=== PATIENT | male | born 1940 | race Caucasian/White ===

== ENCOUNTER 2023-12-06 19:26 | Inpatient (IN) | payer MEDICARE, BC ==
--- NOTE | 2023-12-06 20:14 | ED ---
General Adult HPI - General Chief complaint: Recheck/Abnormal Lab/Rx Stated complaint: sick Time Seen by Provider: 12/06/23 19:41 Source: patient, EMS Mode of arrival: EMS Limitations: no limitations, physical limitation - History of Present Illness Initial comments: Dictation was produced using Banno dictation software. please excuse any grammatical, word or spelling errors. Chief Complaint: 83-year-old male with past medical history of diabetes presents to the ER for hypoxia URI type symptoms History of Present Illness: Patient is 83-year-old male denies any significant comorbidities. EMS was called for patient having fevers and loose stools. Patient denies any specific complaints. According EMS patient was hypoxic into the low 80s upon initial evaluation. States that his granddaughter also checked his oxygen was found to be low. Apparently several individuals in the household have been sick with URI type symptoms. Patient denies any pain. States that he does not feel short of breath. Furthermore he states that he has a chronic cough that has not changed over the last couple days The ROS documented in this emergency department record has been reviewed and confirmed by me. Those systems with pertinent positive or negative responses have been documented in the HPI. All other systems are other negative and/or noncontributory. - Related Data Home Medications Medication Instructions Recorded Confirmed Aspirin EC [Ecotrin Low Dose] 81 mg PO DAILY 12/06/23 12/06/23 Calcium Carbonate/Vitamin D3 1 tab PO BID 12/06/23 12/06/23 [Calcium 600 mg-D3 20 mcg (800 unit)] Cyanocobalamin [Vitamin B-12] 500 mcg PO DAILY 12/06/23 12/06/23 Ferrous Sulfate [Feosol] 325 mg PO BID 12/06/23 12/06/23 Lansoprazole [Prevacid 24Hr] 15 mg PO DAILY 12/06/23 12/06/23 Magnesium Oxide [Magnesium] 500 mg PO BID 12/06/23 12/06/23 Midodrine [ProAmatine] 5 mg PO TID PRN 12/06/23 12/06/23 Simvastatin [Zocor] 40 mg PO HS 12/06/23 12/06/23 cilostazoL [Pletal] 100 mg PO BID 12/06/23 12/06/23 glyBURIDE [Diabeta] 5 mg PO HS 12/06/23 12/06/23 Allergies Allergy/AdvReac Type Severity Reaction Status Date / Time cerivastatin [From Baycol] Allergy Unknown Verified 12/06/23 21:09 lisinopril Allergy Unknown Verified 12/06/23 21:09 metformin Allergy Unknown Verified 12/06/23 21:09 prednisone Allergy Unknown Verified 12/06/23 21:09 Review of Systems ROS Statement: Those systems with pertinent positive or pertinent negative responses have been documented in the HPI. ROS Other: All systems not noted in ROS Statement are negative. Past Medical History Past Medical History: Diabetes Mellitus History of Any Multi-Drug Resistant Organisms: None Reported Past Psychological History: No Psychological Hx Reported Smoking Status: Former smoker Past Alcohol Use History: None Reported Past Drug Use History: None Reported General Exam - General Exam Comments Initial Comments: PHYSICAL EXAM: General Impression: Alert and oriented x3, not in acute distress HEENT: Normocephalic atraumatic, extra-ocular movements intact, pupils equal and reactive to light bilaterally, mucous membranes moist. Cardiovascular: Heart regular rate and rhythm Chest: Dyspneic, diffuse rhonchi with auscultation of lungs bilaterally Abdomen: abdomen soft, non-tender, non-distended, no organomegaly Musculoskeletal: Pulses present and equal in all extremities, no peripheral edema Motor: no focal deficits noted Neurological: CN II-XII grossly intact, no focal motor or sensory deficits noted Skin: Intact with no visualized rashes Psych: Normal affect and mood Limitations: no limitations, physical limitation Course Vital Signs 12/06/23 12/06/23 12/06/23 19:30 19:53 21:30 Temperature 98.9 F Pulse Rate 147 H 147 H 68 Respiratory 24 20 Rate Blood Pressure 110/71 120/86 O2 Sat by Pulse 95 94 L Oximetry EKG Findings - EKG Comments: EKG Findings:: My EKG interpretation: Ventricular rate 148, tachycardia versus atrial flutter. No no QTC prolongation, no ST or T-wave changes noted. No EKG for comparison. Overall this EKG is nonspecific Medical Decision Making - Medical Decision Making Was pt. sent in by a medical professional or institution (, PA, EXPORT DOCUMENTS CLERK, urgent care, hospital, or fpc...) When possible be specific @ -No Did you speak to anyone other than the patient for history (EMS, parent, family, police, friend...)? What history was obtained from this source @ -No Did you review nursing and triage notes (agree or disagree)? Why? @ -I reviewed and agree with nursing and triage notes Were old charts reviewed (outside hosp., previous admission, EMS record, old EKG, old radiological studies, urgent care reports/EKG's, fpc records)? Report findings @ -No old charts were reviewed Differential Diagnosis (chest pain, altered mental status, abdominal pain women, abdominal pain men, vaginal bleeding, musculoskeletal, weakness, fever, dyspnea, syncope, headache, dizziness, GI bleed, back pain, seizure, CVA, palpatations, mental health)? @ -Differential Dyspnea: Coronary syndrome, arrhythmia, tamponade, asthma, COPD, pulmonary embolism, pneumonia, pneumothorax, pulmonary effusion, anaphylaxis, diabetic ketoacidosis, flailed chest, pulmonary contusion, diaphragmatic rupture, anemia, neuromuscular, this is not meant to be an all-inclusive list. EKG interpreted by me (3pts min.). @ -See above X-rays interpreted by me (1pt min.). @ -Chest x-ray shows no acute processes CT interpreted by me (1pt min.). @ -None done U/S interpreted by me (1pt. min.). @ -None done What testing was considered but not performed or refused? (CT, X-rays, U/S, labs)? Why? @ -None What meds were considered but not given or refused? Why? @ -None Did you discuss the management of the patient with other professionals (professionals i.e. , PA, EXPORT DOCUMENTS CLERK, lab, RT, psych nurse, social contact worker, librarian specialist, teacher, senior escrow officer, bilingual patient support caseworker)? Give summary @ -Case discussed with hospitalist for admission Was smoking cessation discussed for >3mins.? @ -No Was critical care preformed (if so, how long)? @ -No Were there social determinants of health that impacted care today? How? (Homelessness, low income, unemployed, alcoholism, drug addiction, transportation, low edu. Level, literacy, decrease access to med. care, shelter, rehab)? @ -No Was there de-escalation of care discussed even if they declined (Discuss DNR or withdrawal of care, Hospice)? DNR status @ -No What co-morbidities impacted this encounter? (DM, HTN, Smoking, COPD, CAD, Cancer, CVA, ARF, Chemo, Hep., AIDS, mental health diagnosis, sleep apnea, morbid obesity)? @ -None Was patient admitted / discharged? Hospital course, mention meds given and route, prescriptions, significant lab abnormalities, going to OR and other [facility] info. @ -83-year-old male presents to the emergency department for alleged hypoxia. Vital signs upon arrival shows 95% oxygen on 2 L nasal cannula. He was significantly tachycardic into the 150s. His EKG showed significant tachycardia however raises suspicion of pathologic tacky dysrhythmia atrial flutter versus supraventricular tachycardia. Laboratory evaluation obtained. CBC unremarka ble. Metabolic panel within acceptable limits. Cardiac enzymes shows troponin of 0.047, brain atretic peptide of 2660. Patient did not report any acute complaints. He was monitored in the emergency department and converted. Repeat EKG showed atrial fibrillation. Patient denies a history of A-fib anticoagulation use or ever having previously been evaluated by society reporter. Patient be admitted for new onset A-fib. Undiagnosed new problem with uncertain prognosis? @ -No Drug Therapy requiring intensive monitoring for toxicity (Heparin, Nitro, Insulin, Cardizem)? @ -No Were any procedures done? @ -No Diagnosis/symptom? Acute, or Chronic, or Acute on Chronic? Uncomplicated (without systemic symptoms) or Complicated (systemic symptoms)? @ -New onset A-fib Side effects of treatment? @ -No Exacerbation, Progression, or Severe Exacerbation? @ -No Poses a threat to life or bodily function? How? (Chest pain, USA, SD, pneumonia, PE, COPD, DKA, ARF, appy, cholecystitis, CVA, Diverticulitis, Homicidal, Suicidal, threat to staff... and all critical care pts) @ -yes - Lab Data Result diagrams: 12/06/23 20:25 12/06/23 20:25 Lab Results 12/06/23 12/06/23 12/06/23 Range/Units 20:25 20:25 20:25 WBC 4.6 (3.8-10.6) k/uL RBC 4.45 (4.30-5.90) m/uL Hgb 13.3 (13.0-17.5) gm/dL Hct 39.8 (39.0-53.0) % MCV 89.4 (80.0-100.0) fL MCH 29.8 (25.0-35.0) pg MCHC 33.3 (31.0-37.0) g/dL RDW 14.1 (11.5-15.5) % Plt Count 250 (150-450) k/uL MPV 7.7 Neutrophils % 65 % Lymphocytes % 21 % Monocytes % 9 % Eosinophils % 1 % Basophils % 2 % Neutrophils # 3.0 (1.3-7.7) k/uL Lymphocytes # 0.9 L (1.0-4.8) k/uL Monocytes # 0.4 (0-1.0) k/uL Eosinophils # 0.0 (0-0.7) k/uL Basophils # 0.1 (0-0.2) k/uL PT 11.1 (10.0-12.5) sec INR 1.0 (<1.2) APTT 29.9 (22.0-30.0) sec Sodium 133 L (137-145) mmol/L Potassium 5.2 H (3.5-5.1) mmol/L Chloride 98 (98-107) mmol/L Carbon Dioxide 24 (22-30) mmol/L Anion Gap 11 mmol/L BUN 44 H (9-20) mg/dL Creatinine 1.70 H (0.66-1.25) mg/dL Est GFR (CKD-EPI)AfAm 42 (>60 ml/min/1.73 sqM) Est GFR (CKD-EPI)NonAf 36 (>60 ml/min/1.73 sqM) Glucose 105 H (74-99) mg/dL Plasma Lactic Acid Maksim (0.7-2.0) mmol/L Calcium 8.1 L (8.4-10.2) mg/dL Magnesium 2.1 (1.6-2.3) mg/dL Total Bilirubin 0.7 (0.2-1.3) mg/dL AST 68 H (17-59) U/L ALT 19 (4-49) U/L Alkaline Phosphatase 66 (38-126) U/L Troponin I (0.000-0.034) ng/mL NT-Pro-B Natriuret Pep 2660 pg/mL Total Protein 6.7 (6.3-8.2) g/dL Albumin 3.7 (3.5-5.0) g/dL 12/06/23 12/06/23 Range/Units 20:25 20:25 WBC (3.8-10.6) k/uL RBC (4.30-5.90) m/uL Hgb (13.0-17.5) gm/dL Hct (39.0-53.0) % MCV (80.0-100.0) fL MCH (25.0-35.0) pg MCHC (31.0-37.0) g/dL RDW (11.5-15.5) % Plt Count (150-450) k/uL MPV Neutrophils % % Lymphocytes % % Monocytes % % Eosinophils % % Basophils % % Neutrophils # (1.3-7.7) k/uL Lymphocytes # (1.0-4.8) k/uL Monocytes # (0-1.0) k/uL Eosinophils # (0-0.7) k/uL Basophils # (0-0.2) k/uL PT (10.0-12.5) sec INR (<1.2) APTT (22.0-30.0) sec Sodium (137-145) mmol/L Potassium (3.5-5.1) mmol/L Chloride (98-107) mmol/L Carbon Dioxide (22-30) mmol/L Anion Gap mmol/L BUN (9-20) mg/dL Creatinine (0.66-1.25) mg/dL Est GFR (CKD-EPI)AfAm (>60 ml/min/1.73 sqM) Est GFR (CKD-EPI)NonAf (>60 ml/min/1.73 sqM) Glucose (74-99) mg/dL Plasma Lactic Acid Maksim 1.6 (0.7-2.0) mmol/L Calcium (8.4-10.2) mg/dL Magnesium (1.6-2.3) mg/dL Total Bilirubin (0.2-1.3) mg/dL AST (17-59) U/L ALT (4-49) U/L Alkaline Phosphatase (38-126) U/L Troponin I 0.047 H* (0.000-0.034) ng/mL NT-Pro-B Natriuret Pep pg/mL Total Protein (6.3-8.2) g/dL Albumin (3.5-5.0) g/dL Disposition Clinical Impression: New onset a-fib Disposition: ADMITTED IP TO THIS HOSP Condition: Fair Referrals: None,Stated [Primary Care Provider] - 1-2 days Decision Time: 23:47
[2023-12-06] MEDS: SODIUM CHLORIDE 0.9% 1,000 ML IV STA (20:45)
[2023-12-06 20:48] LABS: Basophils # (A) 0.1 k/uL (0-0.2); Basophils % (A) 2 %; Eosinophils % (A) 1 %; HCT 39.8 % (39.0-53.0); HGB 13.3 gm/dL (13.0-17.5); Lymphocytes # (A) 0.9 k/uL (1.0-4.8); Lymphocytes % (A) 21 %; MCH 29.8 pg (25.0-35.0); MCHC 33.3 g/dL (31.0-37.0); MCV 89.4 fL (80.0-100.0); Mean Platelet Volume 7.7; Monocytes # (A) 0.4 k/uL (0-1.0); Monocytes % (A) 9 %; Neutrophils % (A) 65 %; Platelet Count 250 k/uL (150-450); RBC 4.45 m/uL (4.30-5.90); RDW 14.1 % (11.5-15.5); WBC 4.6 k/uL (3.8-10.6)
[2023-12-06 21:02] LABS: Partial Thromboplastin Time 29.9 sec (22.0-30.0); Prothrombin Time 11.1 sec (10.0-12.5)
[2023-12-06 21:10] LABS: ALT 19 U/L (4-49); AST 68 U/L (17-59); African American GFR (CKD) 42 (>60 ml/min/1.73 sqM); Albumin 3.7 g/dL (3.5-5.0); Alkaline Phosphatase 66 U/L (38-126); Anion Gap 11 mmol/L; Blood Urea Nitrogen 44 mg/dL (9-20); Calcium 8.1 mg/dL (8.4-10.2); Carbon Dioxide 24 mmol/L (22-30); Chloride 98 mmol/L (98-107); Glucose 105 mg/dL (74-99); Magnesium 2.1 mg/dL (1.6-2.3); Non-African American GFR(CKD) 36 (>60 ml/min/1.73 sqM); Sodium 133 mmol/L (137-145); Total Bilirubin 0.7 mg/dL (0.2-1.3); Total Protein 6.7 g/dL (6.3-8.2)
[2023-12-06 21:17] LABS: NT-Pro-B-Type Natriuretic Pept 2660 pg/mL
[2023-12-06 21:34] LABS: Potassium 5.2 mmol/L (3.5-5.1)
--- NOTE | 2023-12-06 21:48 | XR ---
EXAMINATION TYPE: XR chest 2V DATE OF EXAM: 12/06/2023 8:56 PM CLINICAL INDICATION:Male, 83 years old with history of hypoxia; PHH COMPARISON: None TECHNIQUE: XR chest 2V. Frontal and lateral views of the chest.. FINDINGS: Lines/Tubes/Devices: No indwelling lines are seen. Monitor leads over the chest. Heart/mediastinum: Heart appears mildly enlarged. Mildly tortuous aorta with atherosclerotic calcifi cation seen. Pulmonary vascularity: Mildly prominent hilar vascular shadows, likely arterial. No significant venou s congestion is suggested. Lungs/Pleura: Lungs appear hyperinflated with interstitial coarsening which may suggest a background of COPD changes. Some ill-defined patchy opacities are suggested peripherally in the left mid to uppe r lung zones, and possibly the right lower lung zone. Small radiodense foci over the right upper lung zone may reflect calcified granulomas. No sizable pleural effusion or evidence of pneumothorax. Musculoskeletal: No acute osseous abnormality demonstrated in the limits of the exam. Degenerative c hanges of the thoracic spine, otherwise not well assessed. Other findings: None. IMPRESSION: 1. Lung findings may be seen with COPD. 2. Nonspecific vague opacities in the bilateral lung jo, could reflect chronic changes/nodularit y, with acute consolidation considered less likely but not excluded. 3. Follow-up recommended. This may include CT of the chest for better evaluation.
[2023-12-06] MEDS ORDERED: HEPARIN SODIUM 1,000 UN/ML (10ML VL) IV PRN (23:00)
[2023-12-06] MEDS ORDERED: NALOXONE 0.4 MG/ML 1 ML VIAL IV PRN (23:36)
[2023-12-06] MEDS: HEPARIN SODIUM 1,000 UN/ML (10ML VL) IV ONE (23:38)
[2023-12-06] MEDS: HEPARIN SOD,PORK IN 0.45% NACL 25,000 UNIT in 0.45% NACL 1 250ML.BAG IV SCH (23:44)
[2023-12-06] MEDS: SODIUM CHLORIDE 0.9% 1,000 ML IV SCH (23:49)
--- NOTE | 2023-12-07 04:07 | P.HPIM ---
History of Present Illness H&P Date: 12/06/23 Patient is a 83-year-old male with a PMH of type II DM and hyperlipidemia who presents to the emergency room with complaints of shortness of breath and palpitations. Patient reports he had checked his pulse oximeter which revealed an SpO2 of 74% and that he was told that his heart rate was irregular. EMS documentation reveals however that they were called to the scene for complaints of diarrhea and fever. Patient denies experiencing abdominal pain or diarrhea. Also denies nausea, vomiting, fever, chills, chest pain. Denies history of A- fib. In the emergency room, initial EKG revealed a flutter at 148 bpm as reviewed by me. Subsequent EKG revealed sinus rhythm at 76 bpm with APCs as reviewed by me. Chest x-ray revealed bilateral lung field nodularities. Laboratory evaluation was remarkable for troponin 0.047, proBNP 2660, sodium 133, potassium 5.2, BUN 44, creatinine 1.70, lactic acid 1.6. ED documentation reviewed and case discussed with ED provider. Review of systems: Pertinent positives and negatives as discussed in HPI, a complete review of systems was performed and all other systems are negative. Physical examination: Vital signs reviewed General: non toxic, no distress, appears at stated age, normal weight Derm: no unusual rashes/lesions, warm Head: atraumatic, normocephalic, symmetric Eyes: EOMI, no lid lag, anicteric sclera, pupils equal round reactive to light ENT: Nose and ears atraumatic Neck: No cervical lymphadenopathy, trachea midline, supple Mouth: no lip lesion, mucus membranes moist Cardiovascular: S1S2 reg, no murmur, positive dorsalis pedis pulse bilateral, no edema Lungs: CTA bilateral, no rhonchi, no rales, no accessory muscle use Abdominal: soft, nontender to palpation, no guarding Ext: muscle strength 5 out of 5 in all 4 extremities grossly, no gross muscle atrophy, no contractures, Neuro: CN II-XI grossly intact, no gross focal neuro deficits Psych: Alert, oriented, appropriate affect Assessment: A-fib with RVR, newly diagnosed Elevated troponin, suspect type II ND in setting of A-fib with RVR Acute hypoxic respiratory failure, suspect newly diagnosed CHF Acute kidney injury Chronic conditions: Type II DM, hyperlipidemia Imaging: In the emergency room, initial EKG revealed a flutter at 148 bpm as reviewed by me. Subsequent EKG revealed sinus rhythm at 76 bpm with APCs as reviewed by me. Chest x-ray revealed bilateral lung field nodularities. Data Review: Laboratory evaluation was remarkable for troponin 0.047, proBNP 2660, sodium 133, potassium 5.2, BUN 44, creatinine 1.70, lactic acid 1.6. Plan: Continue with heparin infusion Patient converted to sinus rhythm spontaneously Cardiac monitoring Trend troponin Cardiology consulted Obtain echocardiogram Obtain CT chest Monitor BMP Check procalcitonin levels DVT prophylaxis: Heparin infusion The patient is admitted with an anticipated greater than than 2 midnight stay for evaluation of A-fib CODE STATUS: Full Code Discussed with: Patient Anticipated discharge place: Home Past Medical History Past Medical History: Diabetes Mellitus History of Any Multi-Drug Resistant Organisms: None Reported Past Psychological History: No Psychological Hx Reported Smoking Status: Former smoker Past Alcohol Use History: None Reported Past Drug Use History: None Reported Medications and Allergies Home Medications Medication Instructions Recorded Confirmed Type Aspirin EC [Ecotrin Low Dose] 81 mg PO DAILY 12/06/23 12/06/23 History Calcium Carbonate/Vitamin D3 1 tab PO BID 12/06/23 12/06/23 History [Calcium 600 mg-D3 20 mcg (800 unit)] Cyanocobalamin [Vitamin B-12] 500 mcg PO DAILY 12/06/23 12/06/23 History Ferrous Sulfate [Feosol] 325 mg PO BID 12/06/23 12/06/23 History Lansoprazole [Prevacid 24Hr] 15 mg PO DAILY 12/06/23 12/06/23 History Magnesium Oxide [Magnesium] 500 mg PO BID 12/06/23 12/06/23 History Midodrine [ProAmatine] 5 mg PO TID PRN 12/06/23 12/06/23 History Simvastatin [Zocor] 40 mg PO HS 12/06/23 12/06/23 History cilostazoL [Pletal] 100 mg PO BID 12/06/23 12/06/23 History glyBURIDE [Diabeta] 5 mg PO HS 12/06/23 12/06/23 History Allergies Allergy/AdvReac Type Severity Reaction Status Date / Time cerivastatin [From Baycol] Allergy Unknown Verified 12/06/23 21:09 lisinopril Allergy Unknown Verified 12/06/23 21:09 metformin Allergy Unknown Verified 12/06/23 21:09 prednisone Allergy Unknown Verified 12/06/23 21:09 Physical Exam Vitals: Vital Signs Temp Pulse Resp BP Pulse Ox 12/06/23 21:30 68 20 120/86 94 L 12/06/23 19:53 147 H 12/06/23 19:30 98.9 F 147 H 24 110/71 95 Intake and Output 12/06/23 12/06/23 12/07/23 14:59 22:59 06:59 Other: Weight 90.718 kg Results CBC & Chem 7: 12/06/23 20:25 12/06/23 20:25 Labs: Abnormal Lab Results - Last 24 Hours (Table) 12/06/23 12/06/23 12/06/23 Range/Units 20:25 20:25 20:25 Lymphocytes # 0.9 L (1.0-4.8) k/uL Sodium 133 L (137-145) mmol/L Potassium 5.2 H (3.5-5.1) mmol/L BUN 44 H (9-20) mg/dL Creatinine 1.70 H (0.66-1.25) mg/dL Glucose 105 H (74-99) mg/dL Calcium 8.1 L (8.4-10.2) mg/dL AST 68 H (17-59) U/L Troponin I 0.047 H* (0.000-0.034) ng/mL
[2023-12-07 04:57] LABS: African American GFR (CKD) 42 (>60 ml/min/1.73 sqM); Anion Gap 8 mmol/L; Blood Urea Nitrogen 44 mg/dL (9-20); Calcium 7.9 mg/dL (8.4-10.2); Carbon Dioxide 24 mmol/L (22-30); Chloride 102 mmol/L (98-107); Glucose 84 mg/dL (74-99); Non-African American GFR(CKD) 36 (>60 ml/min/1.73 sqM); Potassium 4.2 mmol/L (3.5-5.1); Sodium 134 mmol/L (137-145)
--- NOTE | 2023-12-07 09:29 | CT ---
EXAMINATION TYPE: CT chest wo con CT DLP: 431 mGycm, Automated exposure control for dose reduction was used. DATE OF EXAM: 12/07/2023 5:09 AM COMPARISON: Chest radiograph from 12/06/2023. CLINICAL INDICATION:Male, 83 years old with history of hypoxia, vika nodularities;, hypoxia, vika nodul arities TECHNIQUE: Multiple axial images were obtained through the chest. Sagittal and coronal reformats were created for review. Contrast used: mL of (None if empty) Oral contrast used: (None if empty) FINDINGS: LUNGS/ PLEURA: Centrilobular emphysema changes are present throughout the lungs. No evidence for susp icious pulmonary nodule. There is streaky atelectasis in the lung bases most pronounced in the right lung base. There is calcifications of the pleura. AIRWAY: Patent and unremarkable. HEART: Heart is enlarged for size. There is severe coronary cusp patient's. Aortic valve leaflet betito ccation. MEDIASTINUM: No gross evidence of adenopathy. VASCULATURE: No aortic aneurysm. Severe atherosclerosis of the arterial vasculature. MUSCULOSKELETAL: Multiple remote appearing rib fractures are identified bilaterally. Vertebroplasty c hanges at T12. Multilevel degeneration changes throughout the spine are moderate. SOFT TISSUES/LYMPH NODES: Unremarkable. LOWER NECK: No significant findings. UPPER ABDOMEN: No significant findings. IMPRESSION: 1. No suspicious pulmonary nodules. 2. Pleural calcifications bilaterally 3. Remote appearing rib fractures. 4. Severe coronary artery atherosclerosis. 5. Mild cardiomegaly. 6. Mild to moderate Emphysema changes
--- NOTE | 2023-12-07 10:24 | P.PN ---
Subjective Progress Note Date: 12/07/23 No new complaints today. Discussed with nursing, patient is scheduled for echo today. Heart rates are better controlled, now in sinus rhythm with PACs on telemetry Gen: In NAD, non-toxic HEENT: normocephalic, atraumatic, hearing acuity is intant, mucous membranes moist CVS: perfusing all extremities well, no pitting edema, Respiratory: symmetric chest expansion, no accessory muscle use, GI: soft, NTTP, ND, : no suprapubic tenderness, no CVA tenderness MSK/Derm: no rashes, cyanosis Neuro: CN II-XII intact, no motor weakness, Psych: cooperative, euthymic mood, judgment and insight is intact Hospital course: Patient is a 83-year-old male with a PMH of type II DM and hyperlipidemia who presents to the emergency room with complaints of shortness of breath and palpitations. In the emergency room, initial EKG revealed a flutter at 148 bpm as reviewed by me. Subsequent EKG revealed sinus rhythm at 76 bpm with APCs as reviewed by me. Chest x-ray revealed bilateral lung field nodularities. Laboratory evaluation was remarkable for troponin 0.047, proBNP 2660, sodium 133, potassium 5.2, BUN 44, creatinine 1.70, lactic acid 1.6. Assessment: A-fib with RVR, newly diagnosed Influenza A Elevated troponin, suspect type II [place] in setting of A-fib with RVR Acute hypoxic respiratory failure, suspect newly diagnosed CHF Acute kidney injury Chronic conditions: Type II DM, hyperlipidemia Plan: Continue with heparin infusion Patient converted to sinus rhythm spontaneously Cardiac monitoring Trend troponin Cardiology consulted, evaluation pending Obtain echocardiogram, pending Obtain CT chest, no nodules, remote rib fractures, emphysema is present, heart is enlarged Monitor BMP Check procalcitonin levels equals 0.4 Start Tamiflu DVT prophylaxis: Heparin infusion The patient is admitted with an anticipated greater than than 2 midnight stay for evaluation of A-fib CODE STATUS: Full Code Discussed with: Patient Anticipated discharge place: Home Objective - Vital Signs Vital signs: Vital Signs Temp 98.9 F 12/06/23 19:30 Pulse 89 12/07/23 10:08 Resp 16 12/07/23 10:08 BP 124/60 12/07/23 10:08 Pulse Ox 88 L 12/07/23 07:25 FiO2 Intake & Output 12/06/23 12/07/2312/06/24 18:59 06:59 18:59 Intake Total 91.333 Balance 91.333 Weight 90.718 kg Intake: Intake, IV Titration 91.333 Amount Heparin Sod,Pork in 0.45% 91.333 NaCl 25,000 unit In 0.45 % NaCl 1 250ml.bag @ 11. 0232 UNITS/KG/HR 10 mls/ hr IV .Q24H [facility] Rx#: [id number] - Labs CBC & Chem 7: 12/06/23 20:25 12/07/23 04:11 Labs: Abnormal Lab Results - Last 24 Hours (Table) 12/06/23 12/06/23 12/06/23 Range/Units 20:25 20:25 20:25 Lymphocytes # 0.9 L (1.0-4.8) k/uL APTT (22.0-30.0) sec Sodium 133 L (137-145) mmol/L Potassium 5.2 H (3.5-5.1) mmol/L BUN 44 H (9-20) mg/dL Creatinine 1.70 H (0.66-1.25) mg/dL Glucose 105 H (74-99) mg/dL Calcium 8.1 L (8.4-10.2) mg/dL AST 68 H (17-59) U/L Troponin I 0.047 H* (0.000-0.034) ng/mL Procalcitonin (0.02-0.09) ng/mL Influenza Type A (PCR) (Not Detectd) 12/07/23 12/07/23 12/07/23 Range/Units 04:11 04:11 04:11 Lymphocytes # (1.0-4.8) k/uL APTT (22.0-30.0) sec Sodium 134 L (137-145) mmol/L Potassium (3.5-5.1) mmol/L BUN 44 H (9-20) mg/dL Creatinine 1.71 H (0.66-1.25) mg/dL Glucose (74-99) mg/dL Calcium 7.9 L (8.4-10.2) mg/dL AST (17-59) U/L Troponin I 0.074 H* (0.000-0.034) ng/mL Procalcitonin 0.40 H (0.02-0.09) ng/mL Influenza Type A (PCR) (Not Detectd) 12/07/23 12/07/23 12/07/23 Range/Units 06:00 07:15 09:24 Lymphocytes # (1.0-4.8) k/uL APTT 197.7 H* 63.6 H (22.0-30.0) sec Sodium (137-145) mmol/L Potassium (3.5-5.1) mmol/L BUN (9-20) mg/dL Creatinine (0.66-1.25) mg/dL Glucose (74-99) mg/dL Calcium (8.4-10.2) mg/dL AST (17-59) U/L Troponin I (0.000-0.034) ng/mL Procalcitonin (0.02-0.09) ng/mL Influenza Type A (PCR) Detected A (Not Detectd)
--- NOTE | 2023-12-07 11:11 | CA ---
Transthoracic Echo Report Name: James Toledo Age: 83 Gender: M : 1940 Exam Date: 12/07/2023 07:46 Exam Location: [facility] Ht (in): 70 Wt (lb): 200 Ordering Physician: Jen Matias MD Attending/Referring Phys: Primary Therapist Crystal Gipson RDCS Procedure CPT: Indications: afib, suspect CHF Cardiac Hx: Technical Quality: Fair Contrast 1: Total Dose (mL): Contrast 2: Total Dose (mL): MEASUREMENTS (Male / Female) Normal Values 2D ECHO LV Diastolic Diameter PLAX 3.6 cm 4.2 - 5.9 / 3.9 - 5.3 cm LV Systolic Diameter PLAX 3.1 cm IVS Diastolic Thickness 1.2 cm 0.6 - 1.0 / 0.6 - 0.9 cm LVPW Diastolic Thickness 1.2 cm 0.6 - 1.0 / 0.6 - 0.9 cm LV Relative Wall Thickness 0.7 RV Internal Dim ED PLAX 3.2 cm LA Systolic Diameter LX 4.1 cm 3.0 - 4.0 / 2.7 - 3.8 cm LV Diastolic Volume MOD 4C 72.2 cm??? LV Systolic Volume MOD 4C 39.1 cm??? LV Ejection Fraction MOD 4C 45.8 % LV Cardiac Index MOD 4C 1890.4 cm???/min???m??? LV Diastolic Length 4C 8.3 cm LV Systolic Length 4C 7.2 cm LV Diastolic Volume MOD 2C 64.0 cm??? LV Systolic Volume MOD 2C 21.1 cm??? LV Ejection Fraction MOD 2C 67.0 % LV Cardiac Index MOD 2C 2449.1 cm???/min???m??? LV Diastolic Length 2C 7.7 cm LV Systolic Length 2C 7.1 cm LA Volume 58.5 cm??? 18 - 58 / 22 - 52 cm??? LA Volume Index 27.4 cm???/m??? 16 - 28 cm???/m??? M-MODE Aortic Root Diameter MM 3.3 cm DOPPLER AV Peak Velocity 248.4 cm/s AV Peak Gradient 24.7 mmHg AV Mean Velocity 178.0 cm/s AV Mean Gradient 14.2 mmHg AV Velocity Time Integral 50.4 cm AI Peak Velocity 334.4 cm/s AI Peak Gradient 44.7 mmHg AI Pressure Half Time 665.5 ms LVOT Peak Velocity 93.2 cm/s LVOT Peak Gradient 3.5 mmHg MV Deceleration Time 184.8 ms FINDINGS Left Ventricle Left ventricular ejection fraction is estimated at 45%. Small left ventricular cavity. Mildly increased septal wall thickness. Right Ventricle Normal right ventricular size. Unable to estimate the right ventricular systolic pressure. Right Atrium Normal right atrial size. Left Atrium Mildly increased left atrial diameter. Mildly increased left atrial area. Mitral Valve Mitral valve thickened. Mitral annular calcification. No mitral regurgitation. Aortic Valve No evidence of vegetation on the aortic valve. Aortic valve sclerosis. Mild aortic stenosis with a peak gradient of 25 mmHg and a mean gradient of 14 mmHg. Mild aortic regurgitation. Tricuspid Valve Structurally normal tricuspid valve. No tricuspid regurgitation. Pulmonic Valve Pulmonic valve not well visualized. Pericardium No pericardial effusion. Aorta Normal size aortic root and proximal ascending aorta. CONCLUSIONS Mildly impaired LV function with EF around 45% Mild aortic stenosis with a mean gradient of 14 mmHg and mild aortic insufficiency Previewed by: Dr. Zackery Haro MD (Electronically Signed) Final Date: 07 December 2023 11:11
[2023-12-07] MEDS: OSELTAMIVIR 30 MG CAP PO SCH (11:47)
--- NOTE | 2023-12-07 11:52 | P.CRDCN ---
History of Present Illness Consult date: 12/07/23 Consult reason: atrial fibrillation (New onset) History of present illness: History of present illness: This is an 83-year-old male with past medical history of diabetes mellitus type 2, hyperlipidemia, tobacco use and dependence. 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 We have been asked to evaluate the patient for new onset of atrial fibrillation. Patient presented with shortness of breath. He is an active smoker. He complains of his chronic cough. He is not sure if he had any nausea or vomiting. No history of stroke. He denies any kidney history. He may have had a heart attack in 1988. Patient is a poor historian. He has been started on heparin drip and status post 1 L of IV fluids. Patient is in isolation for influenza. EKG atrial flutter with ventricular rate of 148 bpm, #2 sinus rhythm with PACs Chest x-ray: COPD. Vague opacities bilateral lung jo. Could reflect chronic changes, nodularity with acute consolidation considered less likely. I yes about room 3 Echocardiogram performed 12/07/2023 revealed EF of 45%, mild aortic stenosis with mean gradient of 14 mmHg and mild aortic insufficiency. CBC within normal limits. INR 1. Sodium 134, initial potassium 5.2 now 4.2, BUN 44 creatinine 1.71. Glucose 84. Troponins 0.047 and 0.074. proBNP 2660. AST 68 otherwise liver function test are normal. Magnesium 2.1. Influenza A detected. Influenza B, RSV, COVID-19 not detected. Home cardiac medications: Aspirin 81 mg daily, Pletal 100 mg twice daily, magnesium oxide 5 mg twice daily, simvastatin 40 mg at bedtime, midodrine 5 mg 3 times daily as needed Review Of Systems: At the time of my exam: CONSTITUTIONAL: Denies fever or chills. HEENT: Denies blurred vision, vision changes, or eye pain. Denies hemoptysis CARDIOVASCULAR: Denies chest pain. Denies orthopnea. Denies PND. Denies palpitations RESPIRATORY: + shortness of breath. + Chronic cough GASTROINTESTINAL: Denies abdominal pain. Denies nausea or vomiting. HEMATOLOGIC: Denies bleeding disorders. GENITOURINARY: Denies any blood in urine. SKIN: Denies pruitis. Denies rash. Physical examination: Gen: This is an 83-year-old male in no acute distress. VS: reviewed HEENT: Head is atraumatic, normocephalic. Pupils equal, round. Sclerae is anicteric. NECK: Supple. No JVD. LUNGS: Crackles and rhonchi bilaterally no intercostal retractions. HEART: Regular rate and rhythm. No murmur. ABDOMEN: Soft No tenderness. EXTREMITIES: No pedal edema. No calf tenderness. NEUROLOGICAL: Patient is awake, alert and oriented x3. Assessment: Influenza A New onset atrial fibrillation/atrial flutter, typical Acute kidney injury, unknown baseline Diabetes mellitus type 2 Hyperlipidemia Tobacco use and dependence Plan: Resume patient's home cardiac medications Start patient on Lopressor 25 mg twice daily Discontinue heparin drip and start Eliquis 2.5 mg twice daily Start patient on Lipitor 40 mg daily Smoking cessation Further recommendations to follow based upon clinical course Thank you kindly for this consultation. Nurse practitioner note has been reviewed, I agree with documented findings and plan of care. Patient was seen and examined. Past Medical History Past Medical History: Diabetes Mellitus History of Any Multi-Drug Resistant Organisms: None Reported Past Psychological History: No Psychological Hx Reported Smoking Status: Former smoker Past Alcohol Use History: None Reported Past Drug Use History: None Reported Medications and Allergies Home Medications Medication Instructions Recorded Confirmed Type Aspirin EC [Ecotrin Low Dose] 81 mg PO DAILY 12/06/23 12/06/23 History Calcium Carbonate/Vitamin D3 1 tab PO BID 12/06/23 12/06/23 History [Calcium 600 mg-D3 20 mcg (800 unit)] Cyanocobalamin [Vitamin B-12] 500 mcg PO DAILY 12/06/23 12/06/23 History Ferrous Sulfate [Feosol] 325 mg PO BID 12/06/23 12/06/23 History Lansoprazole [Prevacid 24Hr] 15 mg PO DAILY 12/06/23 12/06/23 History Magnesium Oxide [Magnesium] 500 mg PO BID 12/06/23 12/06/23 History Midodrine [ProAmatine] 5 mg PO TID PRN 12/06/23 12/06/23 History Simvastatin [Zocor] 40 mg PO HS 12/06/23 12/06/23 History cilostazoL [Pletal] 100 mg PO BID 12/06/23 12/06/23 History glyBURIDE [Diabeta] 5 mg PO HS 12/06/23 12/06/23 History Allergies Allergy/AdvReac Type Severity Reaction Status Date / Time cerivastatin [From [facility]] Allergy Unknown Verified 12/06/23 21:09 lisinopril Allergy Unknown Verified 12/06/23 21:09 metformin Allergy Unknown Verified 12/06/23 21:09 prednisone Allergy Unknown Verified 12/06/23 21:09 Physical Exam Vitals: Vital Signs Temp Pulse Resp BP Pulse Ox 12/07/23 07:25 104 H 16 128/84 88 L 12/07/23 04:00 87 22 141/63 96 12/07/23 03:00 83 22 100/82 96 12/07/23 02:00 64 24 115/54 94 L 12/07/23 01:00 68 23 109/64 95 12/07/23 00:00 105 H 24 118/64 94 L 12/06/23 23:00 70 24 117/65 93 L 12/06/23 21:30 68 20 120/86 94 L 12/06/23 19:53 147 H 12/06/23 19:30 98.9 F 147 H 24 110/71 95 Intake and Output 12/06/23 12/07/23 12/07/23 22:59 06:59 14:59 Other: Weight 90.718 kg Results 12/06/23 20:25 12/07/23 04:11 Cardiac Enzymes 12/06/23 12/06/23 12/07/23 Range/Units 20:25 20:25 04:11 AST 68 H (17-59) U/L Troponin I 0.047 H* 0.074 H* (0.000-0.034) ng/mL Coagulation 12/06/23 Range/Units 20:25 PT 11.1 (10.0-12.5) sec APTT 29.9 (22.0-30.0) sec CBC 12/06/23 Range/Units 20:25 WBC 4.6 (3.8-10.6) k/uL RBC 4.45 (4.30-5.90) m/uL Hgb 13.3 (13.0-17.5) gm/dL Hct 39.8 (39.0-53.0) % Plt Count 250 (150-450) k/uL Comprehensive Metabolic Panel 03/10/24 03/11/24 Range/Units 20:25 04:11 Sodium 133 L 134 L (137-145) mmol/L Potassium 5.2 H 4.2 (3.5-5.1) mmol/L Chloride 98 102 (98-107) mmol/L Carbon Dioxide 24 24 (22-30) mmol/L BUN 44 H 44 H (9-20) mg/dL Creatinine 1.70 H 1.71 H (0.66-1.25) mg/dL Glucose 105 H 84 (74-99) mg/dL Calcium 8.1 L 7.9 L (8.4-10.2) mg/dL AST 68 H (17-59) U/L ALT 19 (4-49) U/L Alkaline Phosphatase 66 (38-126) U/L Total Protein 6.7 (6.3-8.2) g/dL Albumin 3.7 (3.5-5.0) g/dL Current Medications Generic Name Dose Route Start Last Admin Trade Name Freq PRN Reason Stop Dose Admin Heparin Sodium (Porcine) 0 unit 12/06/23 23:00 Heparin Sodium 1,000 Un/Ml (10ml Vl) IV PER PROTOCOL PRN Low PTT Protocol Heparin Sodium/Sodium Chloride 250 mls @ 10 mls/hr 12/06/23 23:00 12/06/23 2 3:44 25,000 unit/ Sodium Chloride IV 11.0232 units/kg/hr .Q24H JUSTYNA 10 mls/hr Administration Protocol 11.0232 UNITS/KG/HR Sodium Chloride 1,000 mls @ 20 mls/hr 12/06/23 23:45 12/06/23 23:49 Saline 0.9% IV 20 mls/hr .Q24H JUSTYNA Administration Naloxone HCl 0.2 mg 12/06/23 23:36 Naloxone 0.4 Mg/Ml 1 Ml Vial IV Q2M PRN Opioid Reversal Intake and Output 12/06/23 12/07/23 12/07/23 22:59 06:59 14:59 Other: Weight 90.718 kg 12/06/23 20:25 12/07/23 04:11
[2023-12-07] MEDS: METOPROLOL TARTRATE 25 MG TAB PO SCH (12:40)
[2023-12-07] MEDS: APIXABAN 2.5 MG TABLET PO SCH (12:41)
[2023-12-07] MEDS: ATORVASTATIN 40 MG TAB PO SCH (22:36)
[2023-12-07 23:17] LABS: Glucose,Whole Blood 94 mg/dL (70-110)
[2023-12-08 05:53] LABS: Glucose,Whole Blood 77 mg/dL (70-110)
[2023-12-08 09:22] LABS: HCT 38.3 % (39.0-53.0); HGB 12.2 gm/dL (13.0-17.5); Hypochromasia Slight; MCH 28.7 pg (25.0-35.0); MCHC 31.7 g/dL (31.0-37.0); MCV 90.5 fL (80.0-100.0); Mean Platelet Volume 7.9; Platelet Count 204 k/uL (150-450); RBC 4.24 m/uL (4.30-5.90); RDW 14.5 % (11.5-15.5); WBC 5.4 k/uL (3.8-10.6)
[2023-12-08 09:35] LABS: African American GFR (CKD) 41 (>60 ml/min/1.73 sqM); Anion Gap 9 mmol/L; Blood Urea Nitrogen 50 mg/dL (9-20); Calcium 8.2 mg/dL (8.4-10.2); Carbon Dioxide 25 mmol/L (22-30); Chloride 100 mmol/L (98-107); Glucose 105 mg/dL (74-99); Non-African American GFR(CKD) 35 (>60 ml/min/1.73 sqM); Potassium 4.5 mmol/L (3.5-5.1); Sodium 134 mmol/L (137-145)
[2023-12-08 11:46] LABS: Glucose,Whole Blood 123 mg/dL (70-110)
[2023-12-08] MEDS ORDERED: DEXTROSE 50% SYRINGE 50 ML IVP PRN ×2 (11:46)
[2023-12-08] MEDS: LACTATED RINGERS 1,000 ML IV ONE (11:48)
[2023-12-08] MEDS: INSULIN ASPART (NovoLOG) 100 UNIT/ML VIAL SQ SCH (11:50)
--- NOTE | 2023-12-08 11:56 | P.PN ---
Subjective Progress Note Date: 12/08/23 (delayed charting seen at 0905) Patient is an 83-year-old male with type II DM and hyperlipidemia who presented to the emergency room with complaints of shortness of breath and palpitations. On arrival to the emergency department he underwent an extensive evaluation. Initial EKG revealed a flutter. Initial lab anslysis was remarkable for troponin 0.047, proBNP 2660, sodium 133, potassium 5.2, BUN 44, creatinine 1.70, lactic acid 1.6. He was admitted for A fib wtih RVR and influenxa he was started on heparin gtt. He was seen by cardiology and had an echo preformed which showed EF 45% and mild aortic stenosis. He was transitioned to metoprolol and eliquis. Patient seen and examined at bedside. Feeling tried and short of breath. Having some right sided rib pain. Vital signs reviewed General: Nontoxic, no distress, appears at stated age Cardiovascular: S1S2 reg, no murmur Lungs: Coarse breath sounds bilateral with 3 word conversational dyspnea Abdominal: Soft, nontender to palpation, no guarding Ext: No gross muscle atrophy, no edema b/l lower extremities, no contractures Neuro: CN II-XI grossly intact, no focal neuro deficits Psych: Alert, oriented, appropriate affect Assessment/Plan: Influenza A without pneumonia Acute hypoxic respiratory failure -Tamiflu 30 mg every 12 hours dose #3 of 10 -Repeat chest x-ray AARON on CKD stage III - optimize BP - Avoid nephrotoxic agents - encourage oral intake - may need to resume midodrine, as he takes this prn at home. Newly discovered A-fib wiht RVR acute HFprEF, EF 45% Hx of falls -Patient with hypotension this morning after receiving metoprolol. Decrease metoprolol to 12.5 mg twice daily. Of note patient had low heart rates even with metoprolol administration. This may just need to be monitored -Of note patient states he typically falls 1-2 times monthly. Eliquis risk versus benefit is difficult to determine. As cardiology ordered this medication will defer to them if it should be continued. DM 2 - hold glyburide - SSI - follow BS Dyslipidemia -Lipitor 40 mg nightly Imaging: CT chest: no pulm nodules. remote rib fractures Defaults Data Review: Labs reviewed from today include CBC and BMP which are remarkable for hgb 12.2, sodium 134, bun 50, and cr 1.75 DVT prophylaxis: Eliquis Anticipated discharge date: 24-[address]: home with home health This dictation was prepared using [employer] voice recognition software. Though every attempt is made to correct errors during dictation some may still exist. Objective - Vital Signs Vital signs: Vital Signs Temp 97.9 F 12/08/23 04:06 Pulse 38 L 12/08/23 11:50 Resp 20 12/08/23 11:50 BP 100/41 12/08/23 11:50 Pulse Ox 99 12/08/23 11:50 FiO2 Intake & Output 12/07/23 12/08/23 12/08/23 18:59 06:59 18:59 Intake Total 91.333 118 Output Total 500 Balance 91.333 -500 118 Weight 90.718 kg Intake: Intake, IV Titration 91.333 Amount Heparin Sod,Pork in 0.45% 91.333 NaCl 25,000 unit In 0.45 % NaCl 1 250ml.bag @ 11. 0232 UNITS/KG/HR 10 mls/ hr IV .Q24H [facility] Rx#: [id number] Oral 118 Output: Urine 300 Stool 200 Other: Voiding Method Diaper Diaper External Catheter External Catheter # Bowel Movements 2 - Labs CBC & Chem 7: 12/08/23 08:22 12/08/23 08:22 Labs: Abnormal Lab Results - Last 24 Hours (Table) 12/08/23 12/08/23 12/08/23 Range/Units 08:22 08:22 08:22 RBC 4.24 L (4.30-5.90) m/uL Hgb 12.2 L (13.0-17.5) gm/dL Hct 38.3 L (39.0-53.0) % APTT 32.8 H (22.0-30.0) sec Sodium 134 L (137-145) mmol/L BUN 50 H (9-20) mg/dL Creatinine 1.74 H (0.66-1.25) mg/dL Glucose 105 H (74-99) mg/dL POC Glucose (mg/dL) (70-110) mg/dL Calcium 8.2 L (8.4-10.2) mg/dL 12/08/23 Range/Units 11:44 RBC (4.30-5.90) m/uL Hgb (13.0-17.5) gm/dL Hct (39.0-53.0) % APTT (22.0-30.0) sec Sodium (137-145) mmol/L BUN (9-20) mg/dL Creatinine (0.66-1.25) mg/dL Glucose (74-99) mg/dL POC Glucose (mg/dL) 123 H (70-110) mg/dL Calcium (8.4-10.2) mg/dL
--- NOTE | 2023-12-08 14:38 | P.PN ---
Subjective Progress Note Date: 12/08/23 Consult reason: atrial fibrillation (New onset) History of present illness: History of present illness: This is an 83-year-old male with past medical history of diabetes mellitus type 2, hyperlipidemia, tobacco use and dependence. 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 We have been asked to evaluate the patient for new onset of atrial fibrillation. Patient presented with shortness of breath. He is an active smoker. He complains of his chronic cough. He is not sure if he had any nausea or vomiting. No history of stroke. He denies any kidney history. He may have had a heart attack in 1988. Patient is a poor hi storian. He has been started on heparin drip and status post 1 L of IV fluids. Patient is in isolation for influenza. EKG atrial flutter with ventricular rate of 148 bpm, #2 sinus rhythm with PACs Chest x-ray: COPD. Vague opacities bilateral lung jo. Could reflect chronic changes, nodularity with acute consolidation considered less likely. I yes about room 3 Echocardiogram performed 12/07/2023 revealed EF of 45%, mild aortic stenosis with mean gradient of 14 mmHg and mild aortic insufficiency. CBC within normal limits. INR 1. Sodium 134, initial potassium 5.2 now 4.2, BUN 44 creatinine 1.71. Glucose 84. Troponins 0.047 and 0.074. proBNP 2660. AST 68 otherwise liver function test are normal. Magnesium 2.1. Influenza A detected. Influenza B, RSV, COVID-19 not detected. Home cardiac medications: Aspirin 81 mg daily, Pletal 100 mg twice daily, magnesium oxide 5 mg twice daily, simvastatin 40 mg at bedtime, midodrine 5 mg 3 times daily as needed 12/07 Patient states that his breathing seems to be little bit better but he has had a lot of coughing today. Telemetry is a sinus rhythm. Yesterday, patient was started on Lopressor and Eliquis. There was concern from attending that patient has had multiple falls each month but at this time, recommend continuing Eliquis. Blood pressure 100/41, heart rate 53. Repeat blood work reveals hemoglobin 12.2, BUN 50 creatinine 1.74. Patient has a negative fluid balance. Physical examination: Gen: This is an 83-year-old male in no acute distress. VS: reviewed HEENT: Head is atraumatic, normocephalic. Pupils equal, round. Sclerae is anicteric. NECK: Supple. No JVD. LUNGS: Crackles and rhonchi bilaterally no intercostal retractions. HEART: Regular rate and rhythm. No murmur. ABDOMEN: Soft No tenderness. EXTREMITIES: No pedal edema. No calf tenderness. NEUROLOGICAL: Patient is awake, alert and oriented x3. Assessment: Influenza A New onset atrial fibrillation/atrial flutter, typical, currently in sinus rhythm Acute kidney injury, unknown baseline Diabetes mellitus type 2 Hyperlipidemia Tobacco use and dependence Plan: Continue patient's home cardiac medications Continue patient on Lopressor decreased to 12.5 mg twice daily due to bradycardia Continue Eliquis 2.5 mg twice daily Continue Lipitor 40 mg daily Smoking cessation Further recommendations to follow based upon clinical course Nurse practitioner note has been reviewed, I agree with documented findings and plan of care. Patient was seen and examined. Objective - Vital Signs Vital signs: Vital Signs Temp 97.9 F 12/08/23 04:06 Pulse 38 L 12/08/23 14:04 Resp 20 12/08/23 11:50 BP 100/41 12/08/23 11:50 Pulse Ox 99 12/08/23 11:50 FiO2 Intake & Output 12/07/23 12/08/23 12/08/23 18:59 06:59 18:59 Intake Total 91.333 118 Output Total 500 Balance 91.333 -500 118 Weight 90.718 kg Intake: Intake, IV Titration 91.333 Amount Heparin Sod,Pork in 0.45% 91.333 NaCl 25,000 unit In 0.45 % NaCl 1 250ml.bag @ 11. 0232 UNITS/KG/HR 10 mls/ hr IV .Q24H [facility] Rx#: [id number] Oral 118 Output: Urine 300 Stool 200 Other: Voiding Method Diaper Diaper External Catheter External Catheter # Bowel Movements 2 - Labs CBC & Chem 7: 12/08/23 08:22 12/08/23 08:22 Labs: Abnormal Lab Results - Last 24 Hours (Table) 12/08/23 12/08/23 12/08/23 Range/Units 08:22 08:22 08:22 RBC 4.24 L (4.30-5.90) m/uL Hgb 12.2 L (13.0-17.5) gm/dL Hct 38.3 L (39.0-53.0) % APTT 32.8 H (22.0-30.0) sec Sodium 134 L (137-145) mmol/L BUN 50 H (9-20) mg/dL Creatinine 1.74 H (0.66-1.25) mg/dL Glucose 105 H (74-99) mg/dL POC Glucose (mg/dL) (70-110) mg/dL Calcium 8.2 L (8.4-10.2) mg/dL 12/08/23 Range/Units 11:44 RBC (4.30-5.90) m/uL Hgb (13.0-17.5) gm/dL Hct (39.0-53.0) % APTT (22.0-30.0) sec Sodium (137-145) mmol/L BUN (9-20) mg/dL Creatinine (0.66-1.25) mg/dL Glucose (74-99) mg/dL POC Glucose (mg/dL) 123 H (70-110) mg/dL Calcium (8.4-10.2) mg/dL Microbiology - Last 24 Hours (Table) 12/06/23 22:15 Blood Culture - Preliminary Blood 12/06/23 22:00 Blood Culture - Preliminary Blood
[2023-12-08 16:57] LABS: Glucose,Whole Blood 94 mg/dL (70-110)
[2023-12-08 20:37] LABS: Glucose,Whole Blood 106 mg/dL (70-110)
[2023-12-08] MEDS: METOPROLOL TARTRATE 12.5 MG TAB PO SCH (21:53)
[2023-12-08] MEDS: FERROUS SULFATE 325 MG TAB PO SCH (21:54)
[2023-12-08] MEDS: cilostazoL 100 MG TAB PO SCH (21:59)
[2023-12-09 06:28] LABS: Glucose,Whole Blood 87 mg/dL (70-110)
[2023-12-09] MEDS: PANTOPRAZOLE 40 MG TABLET PO SCH (07:00)
[2023-12-09] MEDS: CYANOCOBALAMIN 500 MCG TAB PO SCH (08:24)
--- NOTE | 2023-12-09 09:16 | XR ---
EXAMINATION TYPE: XR chest 1V portable DATE OF EXAM: 12/08/2023 9:53 AM CLINICAL INDICATION:Male, 83 years old with history of pneumonia; [facility] COMPARISON: Chest radiographs from 12/06/2023 TECHNIQUE: XR chest 1V portable Frontal view of the chest. FINDINGS: Lungs/Pleura: There is no evidence of pleural effusion, focal consolidation, or pneumothorax. Pulmonary vascularity: Unremarkable. Heart/mediastinum: Cardiomediastinal silhouette is enlarged and stable. Musculoskeletal: No acute osseous pathology. Other findings: None IMPRESSION: No definitive evidence for pneumonia.
[2023-12-09 10:44] LABS: HCT 37.7 % (39.0-53.0); HGB 11.9 gm/dL (13.0-17.5); Hypochromasia Slight; MCH 28.3 pg (25.0-35.0); MCHC 31.7 g/dL (31.0-37.0); MCV 89.4 fL (80.0-100.0); Mean Platelet Volume 8.6; Platelet Count 161 k/uL (150-450); Poikilocytosis Slight; RBC 4.21 m/uL (4.30-5.90); RDW 14.6 % (11.5-15.5); WBC 5.6 k/uL (3.8-10.6)
[2023-12-09 10:49] LABS: African American GFR (CKD) 49 (>60 ml/min/1.73 sqM); Anion Gap 7 mmol/L; Blood Urea Nitrogen 50 mg/dL (9-20); Carbon Dioxide 25 mmol/L (22-30); Chloride 103 mmol/L (98-107); Glucose 98 mg/dL (74-99); Non-African American GFR(CKD) 43 (>60 ml/min/1.73 sqM); Potassium 4.6 mmol/L (3.5-5.1); Sodium 135 mmol/L (137-145)
[2023-12-09 11:32] LABS: Glucose,Whole Blood 119 mg/dL (70-110)
--- NOTE | 2023-12-09 14:25 | P.PN ---
Subjective Progress Note Date: 12/09/23 Patient is an 83-year-old male with type II DM and hyperlipidemia who presented to the emergency room with complaints of shortness of breath and palpitations. On arrival to the emergency department he underwent an extensive evaluation. Initial EKG revealed a flutter. Initial lab anslysis was remarkable for troponin 0.047, proBNP 2660, sodium 133, potassium 5.2, BUN 44, creatinine 1.70, lactic acid 1.6. He was admitted for A fib wtih RVR and influenxa he was started on heparin gtt. He was seen by cardiology and had an echo preformed which showed EF 45% and mild aortic stenosis. He was transitioned to metoprolol and eliquis. Patient seen and examined at bedside. He states he feels about the same as yesterday but is improved from 1 admission. Denies any chest pain. Continues to have some shortness of breath. Denies any nausea or vomiting. Vital signs reviewed General: Nontoxic, no distress, appears at stated age Cardiovascular: S1S2 reg, no murmur Lungs: Coarse breath sounds bilateral with 3 word conversational dyspnea Abdominal: Soft, nontender to palpation, no guarding Ext: No gross muscle atrophy, no edema b/l lower extremities, no contractures Neuro: CN II-XI grossly intact, no focal neuro deficits Psych: Alert, oriented, appropriate affect Assessment/Plan: Influenza A without pneumonia Acute hypoxic respiratory failure -Tamiflu 30 mg every 12 hours dose #5/10 -Repeat chest x-ray -Wean O2 as able AARON on CKD stage III - improving - optimize BP - Avoid nephrotoxic agents - encourage oral intake - may need to resume midodrine, as he takes this prn at home. Newly discovered A-fib wiht RVR acute HFprEF, EF 45% Hx of falls -Cardiology note reviewed from 12/07. They do recommend continuing anticoagulation with Eliquis. Decrease metoprolol to 12.5 mg daily - tele DM 2 - hold glyburide - SSI - follow BS Dyslipidemia -Lipitor 40 mg nightly Imaging: -Blood cultures negative for 48 hours Data Review: Labs reviewed from today include CBC and basic metabolic profile which are anival rkable for sodium 135, BUN 50, creatinine 1.49 DVT prophylaxis: Eliquis Anticipated discharge date: 24-[address]: home with home health This dictation was prepared using [employer] voice recognition software. Though every attempt is made to correct errors during dictation some may still exist. Objective - Vital Signs Vital signs: Vital Signs Temp 98 F 12/09/23 13:35 Pulse 65 12/09/23 13:38 Resp 18 12/09/23 13:35 BP 97/45 12/09/23 13:35 Pulse Ox 98 12/09/23 13:35 FiO2 Intake & Output 12/08/23 12/09/23 12/09/23 18:59 06:59 18:59 Intake Total 118 0 118 Output Total 500 350 Balance -382 -350 118 Intake: Oral 118 0 118 Output: Urine 500 350 Other: Voiding Method Diaper Diaper Diaper External Catheter External Catheter External Catheter # Bowel Movements 2 1 - Labs CBC & Chem 7: 12/09/23 08:46 12/09/23 08:46 Labs: Abnormal Lab Results - Last 24 Hours (Table) 12/09/23 12/09/23 12/09/23 Range/Units 08:46 08:46 11:31 RBC 4.21 L (4.30-5.90) m/uL Hgb 11.9 L (13.0-17.5) gm/dL Hct 37.7 L (39.0-53.0) % Sodium 135 L (137-145) mmol/L BUN 50 H (9-20) mg/dL Creatinine 1.49 H (0.66-1.25) mg/dL POC Glucose (mg/dL) 119 H (70-110) mg/dL Calcium 8.0 L (8.4-10.2) mg/dL Microbiology - Last 24 Hours (Table) 12/06/23 22:15 Blood Culture - Preliminary Blood 12/06/23 22:00 Blood Culture - Preliminary Blood
--- NOTE | 2023-12-09 15:12 | P.PN ---
Subjective Progress Note Date: 12/09/23 Consult reason: atrial fibrillation (New onset) History of present illness: History of present illness: This is an 83-year-old male with past medical history of diabetes mellitus type 2, hyperlipidemia, tobacco use and dependence. Patient denies cardiac history does not follow with a hourly shift manager. We have been asked to evaluate the patient for new onset of atrial fibrillation. Patient presented with shortness of breath. He is an active smoker. He complains of his chronic cough. He is not sure if he had any nausea or vomiting. No history of stroke. He denies any kidney history. He may have had a heart attack in 1988. Patient is a poor hi storian. He has been started on heparin drip and status post 1 L of IV fluids. Patient is in isolation for influenza. EKG atrial flutter with ventricular rate of 148 bpm, #2 sinus rhythm with PACs Chest x-ray: COPD. Vague opacities bilateral lung jo. Could reflect chronic changes, nodularity with acute consolidation considered less likely. I yes about room 3 Echocardiogram performed 12/07/2023 revealed EF of 45%, mild aortic stenosis with mean gradient of 14 mmHg and mild aortic insufficiency. CBC within normal limits. INR 1. Sodium 134, initial potassium 5.2 now 4.2, BUN 44 creatinine 1.71. Glucose 84. Troponins 0.047 and 0.074. proBNP 2660. AST 68 otherwise liver function test are normal. Magnesium 2.1. Influenza A detected. Influenza B, RSV, COVID-19 not detected. Home cardiac medications: Aspirin 81 mg daily, Pletal 100 mg twice daily, magnesium oxide 5 mg twice daily, simvastatin 40 mg at bedtime, midodrine 5 mg 3 times daily as needed 12/07 Patient states that his breathing seems to be little bit better but he has had a lot of coughing today. Telemetry is a sinus rhythm. Yesterday, patient was started on Lopressor and Eliquis. There was concern from attending that patient has had multiple falls each month but at this time, recommend continuing Eliquis. Blood pressure 100/41, heart rate 53. Repeat blood work reveals hemoglobin 12.2, BUN 50 creatinine 1.74. Patient has a negative fluid balance. 12/08 Patient's breathing status seems to be stable. He is able to lay flat. He has been continued on Lopressor 12.5 mg twice daily. Heart rate is in the 50s, blood pressure 97/45, pulse ox 98% on 3 L nasal cannula. Repeat blood work reveals hemoglobin 11.9. Sodium 135, potassium 4.6, BUN 50 creatinine 1.49. Physical examination: Gen: This is an 83-year-old male in no acute distress. VS: reviewed HEENT: Head is atraumatic, normocephalic. Pupils equal, round. Sclerae is anicteric. NECK: Supple. No JVD. LUNGS: Crackles and rhonchi bilaterally no intercostal retractions. HEART: Regular rate and rhythm. No murmur. ABDOMEN: Soft No tenderness. EXTREMITIES: No pedal edema. No calf tenderness. NEUROLOGICAL: Patient is awake, alert and oriented x3. Assessment: Influenza A New onset atrial fibrillation/atrial flutter, typical, currently in sinus rhythm Acute kidney injury, unknown baseline Diabetes mellitus type 2 Hyperlipidemia Tobacco use and dependence Plan: Continue patient's home cardiac medications Continue patient on Lopressor decreased to 12.5 mg once daily due to bradycardia Discontinue Pletal Continue Eliquis 2.5 mg twice daily Continue Lipitor 40 mg daily Smoking cessation Further recommendations to follow based upon clinical course Nurse practitioner note has been reviewed, I agree with documented findings and plan of care. Patient was seen and examined. Objective - Vital Signs Vital signs: Vital Signs Temp 98.1 F 12/09/23 08:20 Pulse 57 L 12/09/23 08:20 Resp 18 12/09/23 08:20 BP 91/49 12/09/23 08:20 Pulse Ox 93 L 12/09/23 03:15 FiO2 Intake & Output 12/08/23 12/09/23 12/09/23 18:59 06:59 18:59 Intake Total 118 0 Output Total 500 350 Balance -382 -350 Intake: Oral 118 0 Output: Urine 500 350 Other: Voiding Method Diaper Diaper Diaper External Catheter External Catheter External Catheter # Bowel Movements 2 1 - Labs CBC & Chem 7: 12/09/23 08:46 12/09/23 08:46 Labs: Abnormal Lab Results - Last 24 Hours (Table) 12/08/23 12/09/23 12/09/23 Range/Units 11:44 08:46 08:46 RBC 4.21 L (4.30-5.90) m/uL Hgb 11.9 L (13.0-17.5) gm/dL Hct 37.7 L (39.0-53.0) % Sodium 135 L (137-145) mmol/L BUN 50 H (9-20) mg/dL Creatinine 1.49 H (0.66-1.25) mg/dL POC Glucose (mg/dL) 123 H (70-110) mg/dL Calcium 8.0 L (8.4-10.2) mg/dL 12/09/23 Range/Units 11:31 RBC (4.30-5.90) m/uL Hgb (13.0-17.5) gm/dL Hct (39.0-53.0) % Sodium (137-145) mmol/L BUN (9-20) mg/dL Creatinine (0.66-1.25) mg/dL POC Glucose (mg/dL) 119 H (70-110) mg/dL Calcium (8.4-10.2) mg/dL Microbiology - Last 24 Hours (Table) 12/06/23 22:15 Blood Culture - Preliminary Blood 12/06/23 22:00 Blood Culture - Preliminary Blood
[2023-12-09 15:50] LABS: Glucose,Whole Blood 137 mg/dL (70-110)
[2023-12-09 20:33] LABS: Glucose,Whole Blood 107 mg/dL (70-110)
[2023-12-10 05:58] LABS: Glucose,Whole Blood 98 mg/dL (70-110)
[2023-12-10] MEDS: METOPROLOL TARTRATE 12.5 MG TAB PO SCH (08:23)
--- NOTE | 2023-12-10 11:29 | P.PN ---
Subjective Progress Note Date: 12/10/23 Consult reason: atrial fibrillation (New onset) History of present illness: History of present illness: This is an 83-year-old male with past medical history of diabetes mellitus type 2, hyperlipidemia, tobacco use and dependence. Patient denies cardiac history does not follow with a lpn care manager. We have been asked to evaluate the patient for new onset of atrial fibrillation. Patient presented with shortness of breath. He is an active smoker. He complains of his chronic cough. He is not sure if he had any nausea or vomiting. No history of stroke. He denies any kidney history. He may have had a heart attack in 1988. Patient is a poor hi storian. He has been started on heparin drip and status post 1 L of IV fluids. Patient is in isolation for influenza. EKG atrial flutter with ventricular rate of 148 bpm, #2 sinus rhythm with PACs Chest x-ray: COPD. Vague opacities bilateral lung jo. Could reflect chronic changes, nodularity with acute consolidation considered less likely. I yes about room 3 Echocardiogram performed 12/07/2023 revealed EF of 45%, mild aortic stenosis with mean gradient of 14 mmHg and mild aortic insufficiency. CBC within normal limits. INR 1. Sodium 134, initial potassium 5.2 now 4.2, BUN 44 creatinine 1.71. Glucose 84. Troponins 0.047 and 0.074. proBNP 2660. AST 68 otherwise liver function test are normal. Magnesium 2.1. Influenza A detected. Influenza B, RSV, COVID-19 not detected. Home cardiac medications: Aspirin 81 mg daily, Pletal 100 mg twice daily, magnesium oxide 5 mg twice daily, simvastatin 40 mg at bedtime, midodrine 5 mg 3 times daily as needed 12/07 Patient states that his breathing seems to be little bit better but he has had a lot of coughing today. Telemetry is a sinus rhythm. Yesterday, patient was started on Lopressor and Eliquis. There was concern from attending that patient has had multiple falls each month but at this time, recommend continuing Eliquis. Blood pressure 100/41, heart rate 53. Repeat blood work reveals hemoglobin 12.2, BUN 50 creatinine 1.74. Patient has a negative fluid balance. 12/08 Patient's breathing status seems to be stable. He is able to lay flat. He has been continued on Lopressor 12.5 mg twice daily. Heart rate is in the 50s, blood pressure 97/45, pulse ox 98% on 3 L nasal cannula. Repeat blood work reveals hemoglobin 11.9. Sodium 135, potassium 4.6, BUN 50 creatinine 1.49. 12/09 Patient denies having any chest pain, no palpitations. He still has cough. Blood pressure 112/59, heart rate 68, pulse ox 97% on 3 L nasal cannula. Patient has been going in and out of atrial fibrillation. Heart rate has been stable. Physical examination: Gen: This is an 83-year-old male in no acute distress. VS: reviewed HEENT: Head is atraumatic, normocephalic. Pupils equal, round. Sclerae is anicteric. NECK: Supple. No JVD. LUNGS: Crackles and rhonchi bilaterally no intercostal retractions. HEART: Regular rate and rhythm. No murmur. ABDOMEN: Soft No tenderness. EXTREMITIES: No pedal edema. No calf tenderness. NEUROLOGICAL: Patient is awake, alert and oriented x3. Assessment: Influenza A New onset atrial fibrillation/atrial flutter, typical, currently in sinus rhythm Acute kidney injury, unknown baseline Diabetes mellitus type 2 Hyperlipidemia Tobacco use and dependence Plan: Continue current cardiac medications: Eliquis 2.5 mg twice daily, Lipitor 40 mg daily, Lopressor 12.5 mg daily Smoking cessation Cardiology will sign off this case and follow on an as-needed basis. Please reconsult for any new concerns. Patient may follow-up in the office in one to 2 weeks. Nurse practitioner note has been reviewed, I agree with documented findings and plan of care. Patient was seen and examined. Objective - Vital Signs Vital signs: Vital Signs Temp 97.7 F 12/10/23 08:00 Pulse 68 12/10/23 08:00 Resp 20 12/10/23 08:00 BP 112/49 12/10/23 08:00 Pulse Ox 97 12/10/23 08:00 FiO2 Intake & Output 12/09/23 12/10/23 12/10/23 18:59 06:59 18:59 Intake Total 118 118 Output Total 300 450 Balance -182 -450 118 Intake: Oral 118 118 Output: Urine 300 450 Other: Voiding Method Diaper Diaper Diaper External Catheter External Catheter External Catheter # Bowel Movements 1 - Labs CBC & Chem 7: 12/09/23 08:46 12/09/23 08:46 Labs: Abnormal Lab Results - Last 24 Hours (Table) 12/09/23 12/09/23 12/09/23 Range/Units 08:46 08:46 11:31 RBC 4.21 L (4.30-5.90) m/uL Hgb 11.9 L (13.0-17.5) gm/dL Hct 37.7 L (39.0-53.0) % Sodium 135 L (137-145) mmol/L BUN 50 H (9-20) mg/dL Creatinine 1.49 H (0.66-1.25) mg/dL POC Glucose (mg/dL) 119 H (70-110) mg/dL Calcium 8.0 L (8.4-10.2) mg/dL 12/09/23 Range/Units 15:48 RBC (4.30-5.90) m/uL Hgb (13.0-17.5) gm/dL Hct (39.0-53.0) % Sodium (137-145) mmol/L BUN (9-20) mg/dL Creatinine (0.66-1.25) mg/dL POC Glucose (mg/dL) 137 H (70-110) mg/dL Calcium (8.4-10.2) mg/dL Microbiology - Last 24 Hours (Table) 12/06/23 22:15 Blood Culture - Preliminary Blood 12/06/23 22:00 Blood Culture - Preliminary Blood
[2023-12-10 11:33] LABS: Glucose,Whole Blood 93 mg/dL (70-110)
[2023-12-10 13:21] LABS: HGB 11.6 gm/dL (13.0-17.5); Hypochromasia Slight; MCH 29.9 pg (25.0-35.0); MCHC 33.2 g/dL (31.0-37.0); MCV 90.1 fL (80.0-100.0); Platelet Count 154 k/uL (150-450); RBC 3.88 m/uL (4.30-5.90); RDW 14.3 % (11.5-15.5); WBC 5.2 k/uL (3.8-10.6)
[2023-12-10 13:24] LABS: African American GFR (CKD) 57 (>60 ml/min/1.73 sqM); Anion Gap 7 mmol/L; Blood Urea Nitrogen 39 mg/dL (9-20); Calcium 8.2 mg/dL (8.4-10.2); Carbon Dioxide 25 mmol/L (22-30); Chloride 107 mmol/L (98-107); Glucose 100 mg/dL (74-99); Non-African American GFR(CKD) 49 (>60 ml/min/1.73 sqM); Potassium 4.7 mmol/L (3.5-5.1); Sodium 139 mmol/L (137-145)
--- NOTE | 2023-12-10 15:19 | P.PN ---
Subjective Progress Note Date: 12/10/23 (delayed charting seen at 1005) Patient is an 83-year-old male with type II DM and hyperlipidemia who presented to the emergency room with complaints of shortness of breath and palpitations. On arrival to the emergency department he underwent an extensive evaluation. Initial EKG revealed a flutter. Initial lab anslysis was remarkable for troponin 0.047, proBNP 2660, sodium 133, potassium 5.2, BUN 44, creatinine 1.70, lactic acid 1.6. He was admitted for A fib wtih RVR and influenxa he was started on heparin gtt. He was seen by cardiology and had an echo preformed which showed EF 45% and mild aortic stenosis. He was transitioned to metoprolol and eliquis. Patient seen and examined at bedside. He reports that he is breathing is fine but he still is feeling tired and weak. He is asking to go to [facility] to live out all of the rest of his days. Vital signs reviewed General: Nontoxic, no distress, appears at stated age Cardiovascular: S1S2 reg, no murmur Lungs: Coarse breath sounds bilateral with 3 word conversational dyspnea Abdominal: Soft, nontender to palpation, no guarding Ext: No gross muscle atrophy, no edema b/l lower extremities, no contractures Neuro: CN II-XI grossly intact, no focal neuro deficits Psych: Alert, oriented, appropriate affect Assessment/Plan: Influenza A without pneumonia Acute hypoxic respiratory failure -Tamiflu 30 mg every 12 hours dose #7/ -Repeat chest x-ray -Wean O2 as able AARON on CKD stage III -at baseline - optimize BP - Avoid nephrotoxic agents - encourage oral intake - may need to resume midodrine, as he takes this prn at home. Newly discovered A-fib wiht RVR acute HFprEF, EF 45% Hx of falls -Cardiology note reviewed: Continue with Eliquis, Lipitor, Lopressor. Will sign off. - tele DM 2 - hold glyburide - SSI - follow BS Dyslipidemia -Lipitor 40 mg nightly Imaging: None new Data Review: Labs reviewed from today include CBC and basic metabolic profile which are remarkable for hemoglobin of 11.6 and creatinine of 1.32. Blood cultures negative for 72 hours DVT prophylaxis: Eliquis Anticipated discharge date: 24-[address]: home with home health This dictation was prepared using [employer] voice recognition software. Though every attempt is made to correct errors during dictation some may still exist. Objective - Vital Signs Vital signs: Vital Signs Temp 97.6 F 12/10/23 11:40 Pulse 62 12/10/23 11:40 Resp 20 12/10/23 11:40 BP 126/61 12/10/23 11:40 Pulse Ox 95 12/10/23 11:40 FiO2 Intake & Output 12/09/23 12/10/23 12/10/23 18:59 06:59 18:59 Intake Total 118 236 Output Total 300 450 Balance -182 -450 236 Intake: Oral 118 236 Output: Urine 300 450 Other: Voiding Method Diaper Diaper Diaper External Catheter External Catheter External Catheter # Bowel Movements 1 - Labs CBC & Chem 7: 12/10/23 11:44 12/10/23 11:44 Labs: Abnormal Lab Results - Last 24 Hours (Table) 12/09/23 12/10/23 12/10/23 Range/Units 15:48 11:44 11:44 RBC 3.88 L (4.30-5.90) m/uL Hgb 11.6 L (13.0-17.5) gm/dL Hct 35.0 L (39.0-53.0) % BUN 39 H (9-20) mg/dL Creatinine 1.32 H (0.66-1.25) mg/dL Glucose 100 H (74-99) mg/dL POC Glucose (mg/dL) 137 H (70-110) mg/dL Calcium 8.2 L (8.4-10.2) mg/dL Microbiology - Last 24 Hours (Table) 12/06/23 22:15 Blood Culture - Preliminary Blood 12/06/23 22:00 Blood Culture - Preliminary Blood
[2023-12-10 17:00] LABS: Glucose,Whole Blood 118 mg/dL (70-110)
--- NOTE | 2023-12-10 17:55 | CDI ---
Documentation Clarification Form Date: 12/10/2023 05:35:49 PM From: Cathy Duke RN, CCDS Phone: [phone] Admit Date: 12/06/2023 11:39:00 PM Patient Name: James Toledo Visit Number: [id number] Discharge Date: ATTENTION: The Clinical Documentation Specialists (CDI) and [facility] Coding Staff appreciate your assistance in clarifying documentation. Please respond to the clarification below the line at the bottom and electronically sign. The CDI & [facility] Coding staff will review the response and follow-up if needed. Please note: Queries are made part of the Legal Health Record. If you have any questions, please contact the author of this message via ITS. Dr. Diana Naranjo Atrial Fibrillation is documented in the cardiology consult and ongoing progress notes. Additional clarification regarding the type of atrial fibrillation is requested. History/Risk Factors: Diabetes Mellitus, Hyperlipidemia Former smoker, Clinical Indicators: 83-year-old male present with complaints of shortness of breath and palpitations. ED: EKG revealed a flutter at 148 bpm Troponin 0.047, proBNP 2660, sodium 133, potassium 5.2, BUN 44, creatinine 1.70, lactic acid 1.6. Impression: New onset atrial fibrillation/atrial flutter, typical 12/05 EKG/telemetry: Atrial Flutter/Tachycardia with RVR 148 bpm 12/06 EKG: Atrial Fibrillation with Aberrant Conduction 76 bpm 12/07 EKG: Sinus bradycardia with First degree AV Block 39 bpm 12/06 ECHO: Mildly impaired LV function with EF around 45%. Mild aortic stenosis with a mean gradient of 14 mmHg and mild aortic insufficiency. No pericardial effusion Treatment: Eliquis 2.5 MG PO BID Lipitor 40 MG PO Daily Lopressor 12.5 MG PO Daily Please clarify the type of atrial fibrillation, if known: [ ] Chronic [ ] Permanent [ xx ] Paroxysmal [ ] Persistent [ ] Other, please specify [ ] Unable to determine (Template Last Revised: January 2021) MTDD
[2023-12-10 20:15] LABS: Glucose,Whole Blood 134 mg/dL (70-110)
[2023-12-11 06:10] LABS: Glucose,Whole Blood 106 mg/dL (70-110)
[2023-12-11 11:42] LABS: Glucose,Whole Blood 115 mg/dL (70-110)
--- NOTE | 2023-12-11 15:25 | P.DS ---
Providers Date of admission: 12/06/23 23:39 Expected date of discharge: 12/11/23 Attending physician: Jen Matias MD Consults: 12/06/23 23:36 Consult Physician Routine Consulting Provider: Zackery Haro Consult Reason/Comments: new onset afib Do you want consulting provider notified?: Yes Primary care physician: Stated None Hospital Course: Discharge Diagnosis: Influenza A without pneumonia Acute hypoxic respiratory failure AARON on CKD stage III Newly discovered paroxysmal A-fib withRVR acute HFprEF, EF 45% DM 2 Dyslipidemia Hospital Course: Patient is an 83-year-old male with type II DM and hyperlipidemia who presented to the emergency room with complaints of shortness of breath and palpitations. On arrival to the emergency department he underwent an extensive evaluation. Initial EKG revealed a flutter. Initial lab anslysis was remarkable for troponin 0.047, proBNP 2660, sodium 133, potassium 5.2, BUN 44, creatinine 1.70, lactic a rg 1.6. He was admitted for A fib wtih RVR and influenxa he was started on heparin gtt. He was seen by cardiology and had an echo preformed which showed EF 45% and mild aortic stenosis. He was transitioned to metoprolol and eliquis. Continue to improve. His heart rate remained stable. He did continue to require oxygen. He was still feeling tired but his breathing is back to baseline. He was determined stable for discharge. Patient states he would like hospice care at home and does not want to have to come back to the hospital. Patient was subsequently discharged home with [place] home care and referral to hospice. He does will require oxygen on discharge due to congestive heart failure with room air O2 sat of 77%. Follow-up: Visiting physicians upon discharge. Home care to continue and [facility] to meet with patient at home. New medications on discharge include Lopressor 12.5 mg daily and Eliquis 2.5 mg twice daily. Patient seen and examined at bedside. Feeling okay, does not want to come back to the hospital or be poked or proded any more, feeling tired. Breathing is fine. Vital signs reviewed and stable. General: Nontoxic, no distress, appears at stated age Cardiovascular: S1S2 reg, no murmur, positive posterior tibial pulse bilateral, Lungs: Decreased bs b/l bilateral, no rhonchi, no rales, no accessory muscle use Ext: No gross muscle atrophy, no edema b/l lower extremities, no contractures Neuro: CN II-XI grossly intact, no focal neuro deficits Psych: Alert, oriented, appropriate affect A total of 35 minutes of time were spent preparing this complex discharge summary. Patient was discharged on 12/11/23. This dictation was prepared using [employer] voice recognition software. Though every attempt is made to correct errors during dictation some may still exist. Patient Condition at Discharge: Fair Plan - Discharge Summary Discharge Rx Participant: Yes New Discharge Prescriptions: New Metoprolol Tartrate [Lopressor] 12.5 mg PO DAILY #30 tab Apixaban [Eliquis] 2.5 mg PO BID #60 tab Continue Lansoprazole [Prevacid 24Hr] 15 mg PO DAILY Ferrous Sulfate [Iron (65 MG Elemental)] 325 mg PO BID Cyanocobalamin [Vitamin B-12] 500 mcg PO DAILY cilostazoL [Pletal] 100 mg PO BID Calcium Carbonate/Vitamin D3 [Calcium 600 mg-D3 20 mcg (800 unit)] 1 tab PO BID Magnesium Oxide [Magnesium] 500 mg PO BID Simvastatin [Zocor] 40 mg PO HS Discontinued Aspirin EC [Ecotrin Low Dose] 81 mg PO DAILY glyBURIDE [Diabeta] 5 mg PO HS Midodrine [ProAmatine] 5 mg PO TID PRN PRN Reason: BP <100/60 Discharge Medication List Calcium Carbonate/Vitamin D3 [Calcium 600 mg-D3 20 mcg (800 unit)] 1 tab PO BID 12/06/23 [History] Cyanocobalamin [Vitamin B-12] 500 mcg PO DAILY 12/06/23 [History] Ferrous Sulfate [Iron (65 MG Elemental)] 325 mg PO BID 12/06/23 [History] Lansoprazole [Prevacid 24Hr] 15 mg PO DAILY 12/06/23 [History] Magnesium Oxide [Magnesium] 500 mg PO BID 12/06/23 [History] Simvastatin [Zocor] 40 mg PO HS 12/06/23 [History] cilostazoL [Pletal] 100 mg PO BID 12/06/23 [History] Apixaban [Eliquis] 2.5 mg PO BID #60 tab 12/11/23 [Rx] Metoprolol Tartrate [Lopressor] 12.5 mg PO DAILY #30 tab 12/11/23 [Rx] Follow up Appointment(s)/Referral(s): Diana Naranjo MD [STAFF PHYSICIAN] - 1 Week (Call and make gautam) Andrey Mendez MD [REFERRING] - 1 Week (Call and make gautam) Patient Instructions/Handouts: A-fib (Atrial Fibrillation) (DC) Activity/Diet/Wound Care/Special Instructions: Activity: As tolerated Diet: heart healthy, 2 gram sodium diet, 2L fluid restriction Special Instructions: Will require O2 24/7 due to congestive heart failure. He is 77% at rest on room air. Discharge Disposition: HOME WITH HOME HEALTH SERVICES
[2023-12-11 16:03] VITALS: BP 100/53; PULSE 62; RESP 20; TEMP 98.1
== END 2023-12-11 16:13 | disposition hospice, home (50) | DRG 280 ==
LOC: EC 19:26 → 3SCARD 23:39
PROVIDERS: ADMIT Internal Medicine; ATTEND Internal Medicine
DX: I13.0 Hypertensive heart and chronic kidney disease with heart failure and stage 1 through stage 4 chronic kidney disease, or unspecified chronic kidney disease (principal); I50.31 Acute diastolic (congestive) heart failure; I21.A1 Myocardial infarction type 2; J96.01 Acute respiratory failure with hypoxia; N17.9 Acute kidney failure, unspecified; I48.3 Typical atrial flutter; J10.89 Influenza due to other identified influenza virus with other manifestations; E78.5 Hyperlipidemia, unspecified; F17.200 Nicotine dependence, unspecified, uncomplicated; R29.6 Repeated falls; I48.0 Paroxysmal atrial fibrillation; E11.22 Type 2 diabetes mellitus with diabetic chronic kidney disease; N18.30 Chronic kidney disease, stage 3 unspecified; I95.9 Hypotension, unspecified; Z79.84 Long term (current) use of oral hypoglycemic drugs; Z11.52 Encounter for screening for COVID-19; Z91.81 History of falling; Z71.6 Tobacco abuse counseling; Z51.5 Encounter for palliative care; Z66 Do not resuscitate; Z79.02 Long term (current) use of antithrombotics/antiplatelets; Z79.82 Long term (current) use of aspirin; Z79.899 Other long term (current) drug therapy; Z88.8 Allergy status to other drugs, medicaments and biological substances; Z28.21 Immunization not carried out because of patient refusal; I35.0 Nonrheumatic aortic (valve) stenosis
CPT/HCPCS: 36415; 71045; 71046; 71250; 80048; 80053; 83036; 83605; 83735; 83880; 84145; 84484; 85025; 85027; 85610; 85730; 87040; 87324; 87636; 93005; 93306; 94760; 96361; 96365; 96366; 99285